=== PATIENT | male | born 1990 | race Caucasian/White ===

== ENCOUNTER 2023-01-15 20:29 | Emergency (ER) | payer OTHER, SELFPAY ==
[2023-01-15 20:31] VITALS: BP 135/97; PULSE 88; RESP 13; TEMP 36.9; O2SAT 91; BMI 36.1
[2023-01-15 20:36] VITALS: BP 135/97; PULSE 75; RESP 16; O2SAT 95
--- NOTE | 2023-01-15 21:34 | RAD_ITS ---
INDICATION: cp EXAMINATION/TECHNIQUE: X-RAY - XR Chest 1 View COMPARISON: None. FINDINGS: The lungs are clear. The cardiomediastinal silhouette is unremarkable. No pleural effusion or pneumothorax. No acute osseous abnormalities. RAD/Chest 1 View (Portable) IMPRESSION: No acute radiographic abnormalities. Electronically Signed: De Garcia MD at 22:09 EDT ,
[2023-01-15 21:45] LABS: Absolute Neutrophil Count 6.3 X10^3/uL (2.0-7.7); Basophil# 0.03 X10^3/uL; Basophil% 0.3 % (0-1); Eosinophil# 0.01 X10^3/uL; Eosinophils% 0.1 % (0-5); Hematocrit 47.8 % (40-54); Hemoglobin 16.3 g/dL (13.0-16.5); Lymphocyte % 25.2 % (19-41); Mean Corp Hgb Conc 34.1 g/dL (32-36); Mean Corpuscular Hgb 29.5 pg (27.0-32.0); Mean Corpuscular Volume 86.4 fL (80-94); Mean Platelet Vol. 10.6 fl (6.2-12.0); Monocyte# 0.47 X10^3/uL; Monocyte% 5.2 % (0-10); NRBC Flagged by Analyzer 0 % (0-5); Neutrophil # 6.27 X10^3/uL (2.7-7.7); Neutrophil % 68.9 % (47-70); Platelet Count 246 K/mm3 (150-450); RBC Distribution Width CV 12.6 % (11.6-14.6); RBC Distribution Width SD 39.7 fl (35.1-43.9); Red Blood Count 5.53 M/mm3 (4.6-6.2); White Blood Count 9.1 K/mm3 (4.4-11.0)
[2023-01-15] MEDS: 0.9% Normal Saline (1000mL) 1,000 ML 1000 ML IV (22:02)
[2023-01-15 22:04] LABS: AST(SGOT) 12 U/L (15-37); Alanine Aminotransfer ALT/SGPT 33 U/L (16-61); Albumin, Serum 4.3 g/dL (3.2-5.0); Alkaline Phosphatase 105 U/L (45-117); Anion Gap 6 (5-15); BUN 6 mg/dL (7-18); BUN/Creat Ratio 5.4 RATIO (10-20); Bilirubin, Direct 0.37 mg/dL (0.00-0.30); Calcium,Total 8.9 mg/dL (8.5-10.1); Chloride 107 mmol/L (98-107); Creatinine, Serum 1.12 mg/dL (0.70-1.30); EST Glomerular Filtration Rate 81 mL/min (>60); Est Glom Filt Rate - Afr Amer 99 mL/min (>60); Globulin 3.3 g/dL (2.2-4.2); Glucose 125 mg/dL (74-106); Lipase 23 U/L (13-75); Potassium 3.2 mmol/L (3.5-5.1); Protein, Total 7.6 g/dL (6.4-8.2); Sodium Level 138 mmol/L (136-145); Troponin-I HS 4 pg/mL (3.0-78.0)
--- NOTE | 2023-01-15 23:03 | EDS_ITS ---
HPI History of Present Illness Chief Complaint: Weakness Informant: patient Onset/Context/Timing Onset: Today Narrative Narrative: Patient presents via EMS after becoming weak and shaky at work. He reportedly was inside some kind of a large bin with temperatures in the high 90s. He states he was in this area for about 20 minutes. When he got out he felt weak and shaky. His left arm was cramped and had difficulty moving it. He became nauseous. He does admit to some intermittent sharp chest pain, but states this has been ongoing for years. It typically happens once a day or so. He does report increased stress at home recently and has not been eating much. He has been trying to drink. PFSH PFSH Medical History no medical history no medical history Allergy/AdvReac Type Severity Reaction Status Date / Time No Known Allergies Allergy Verified 01/15/23 22:04 Social History Smoking Status: Never smoker ROS ROS ED Constitutional Constitutional ED: Denies chills or fever(s) Eyes Eyes: Denies change in vision ENT ENT ED: Denies rhinorrhea or sore throat Cardiovascular Cardiovascular: Reports chest pain Respiratory/Chest Respiratory/Chest: Denies cough or dyspnea Gastrointestinal Gastrointestinal: Reports nausea and vomiting; Denies abdominal pain or diarrhea Genitourinary Genitourinary ED: Denies difficulty urinating or dysuria Musculoskeletal Musculoskeletal: Reports extremity pain; Denies back pain Integumentary Denies Abrasions or rash Neurologic Neurologic: Reports weakness; Denies headache(s) Psychiatric Psychiatric: Denies anxiety or depression Allergic/Immunologic Allergic/Immunologic ED: Denies lip swelling or urticaria EXAM Physical Exam Const Vital Signs: 01/15/23 20:31 01/15/23 20:36 01/15/23 20:36 Temperature 98.4 F Temperature Source Oral Pulse Rate 88 75 Respiratory Rate 13 16 Respiratory Pattern Normal Blood Pressure 135/97 H 135/97 H Blood Pressure Mean 109 109 Pulse Ox 91 95 Oxygen Delivery Method Room Air Room Air 01/15/23 23:08 Temperature Temperature Source Pulse Rate 68 Respiratory Rate 16 Respiratory Pattern Blood Pressure 126/75 H Blood Pressure Mean Pulse Ox 96 Oxygen Delivery Method Positive well nourished and well developed General Appearance ED: well developed HEENT Reports dry mucous membranes Mouth ED: Yes dry mucous membranes Mouth: dry mucous membranes Eyes EOMs intact bilaterally Chest Wall inspection of chest normal and palpation of chest normal Resp normal respiratory effort and clear to auscultation bilaterally Cardio regular rate and regular rhythm GI non-tender Auscultation: hypoactive bowel sounds Palpation: soft Extremity normal to inspection Neuro oriented x3 and no sensory deficits noted Motor Exam: strength 5/5 throughout Psych Psych Narrative: Flat affect. Skin no rashes or lesions noted MDM MDM MDM Narrative Medical decision making narrative: Patient placed on cardiac catheterization technologist. EKG obtained to evaluate for cardiac arrhythmia/ischemia. Chest x-ray obtained to evaluate for acute lung pathology, cardiac size, or mediastinal abnormality. Labwork obtained to evaluate for leukocytosis, anemia, and electrolyte derangement. Patient given a liter IV fluids. History & Record Review Discussion w/independent historian: Patient and Family Lab Data Attestation: I reviewed the patient's lab results. Labs: Laboratory Results - last 24 hr 01/15/23 20:45 WBC 9.1 RBC 5.53 Hgb 16.3 Hct 47.8 MCV 86.4 MCH 29.5 MCHC 34.1 RDW Std Deviation 39.7 RDW Coeff of Aleksandar 12.6 Plt Count 246 MPV 10.6 Immature Gran % (Auto) 0.300 Neut % (Auto) 68.9 Lymph % (Auto) 25.2 [place] % (Auto) 5.2 Eos % (Auto) 0.1 Baso % (Auto) 0.3 Absolute Neuts (auto) 6.3 Absolute Lymphs (auto) 2.30 Nucleated RBC % 0 Sodium 138 Potassium 3.2 L Chloride 107 Carbon Dioxide 25.0 Anion Gap 6 BUN 6 L Creatinine 1.12 Estim Creat Clear Calc 93.30 Est GFR (MDRD) Af Amer 99 Est GFR (MDRD) Non-Af 81 BUN/Creatinine Ratio 5.4 L Glucose 125 H Calcium 8.9 Total Bilirubin 1.70 H Direct Bilirubin 0.37 H AST 12 L ALT 33 Alkaline Phosphatase 105 Troponin I High Sens 4 Total Protein 7.6 Albumin 4.3 Globulin 3.3 Lipase 23 Radiography Chest X-Ray - ED: 1 View, Read by ED Physician, Normal, Heart, Lungs and Mediastinum Diagnostic Testing: Clinical Impression(s) from Imaging Studies Chest X-Ray 01/15/23 21:34 IMPRESSION: No acute radiographic abnormalities. Electronically Signed: De Garcia MD at 22:09 EDT , EKG Initial EKG: Attestation: I personally reviewed and interpreted this EKG as follows: Interpretation: Sinus Rhythm (Sinus at 72 with no acute ischemia.) Treatment and Re-Evaluation :: CBC was normal white count 9.1 with a hemoglobin of 16.3. Chemistry studies reveal a BUN of 6 and a creatinine 1.12. Potassium is slightly low at 3.2. LFTs reveal total bilirubin of 1.7 and direct bilirubin of 0.37. AST and ALT are 12 and 33 respectively. Troponin is normal at 4. On repeat evaluation patient does feel improved after IV fluids. He is given oral potassium replacement here but does not require prescription for home. He is referred to local PCP to establish primary care. Discharge Plan Triage Chief Complaint: Weakness ED Provider: Cari Baxter Dx/Rx/DC Orders Clinical Impression: Heat exhaustion Instructions: ED Heat Exhaustion Primary Care Provider: Care Physician,No Primary Referrals: Jose Martin Yuan MD [Med Staff - Active Staff] - As Needed Care Physician,No Primary [Primary Care Provider] - Disposition Disposition: Home, Self Care Discharge Date/Time: 01/15/23 23:20
[2023-01-15 23:08] VITALS: BP 126/75; PULSE 68; RESP 16; O2SAT 96
[2023-01-15] MEDS: Potassium Chloride Oral Tablet 20 MEQ 40 MEQ PO (23:15)
== END 2023-01-15 23:20 | disposition home or self-care (01) ==
PROVIDERS: Emergency Provider Emergency Medicine; Visit Provider Emergency Medicine
DX: T67.5XXA Heat exhaustion, unspecified, initial encounter (principal); X58.XXXA Exposure to other specified factors, initial encounter
CPT/HCPCS: 71045; 80048; 80076; 83690; 84484; 85025; 93005; 99285; J7030; A4216